=== PATIENT | male | born 1965 | race Caucasian/White ===

== ENCOUNTER 2020-04-27 07:49 | Outpatient (CLI) | payer OTHER ==
[2020-04-27 13:25] LABS: Hemoglobin 14.2 g/dL (14.0-18.0); Mean Corpuscular HGB CONC 32.8 G/DL (32.0-36.0); Mean Corpuscular Hemoglobin 30.7 PG (27.0-33.0); Mean Corpuscular Volume 93.7 fl (80.0-100.0); RBC Distribution Width 14.6 % (11.5-14.5); Red Blood Cell (RBC) Count 4.62 10x6/uL (4.40-5.80); White Blood Cell (WBC) Count 5.3 10x3/uL (4.5-11.0)
[2020-04-27 13:38] LABS: Anion Gap 10 mmol/L (10-20); BUN (Urea Nitrogen) 12 mg/dL (8.4-25.7); Calc. Creatinine Clearance 0 mL/min (70-130); Calcium 8.7 mg/dL (7.8-10.44); Carbon Dioxide 27 mmol/L (22-29); Chloride 106 mmol/L (98-107); Glucose 125 mg/dL (70-105); Potassium 4.4 mmol/L (3.5-5.1); Sodium 139 mmol/L (136-145)
[2020-04-27 13:48] LABS: #Basophils 0.1 10x3/uL (0.0-0.2); #Eosinphils 0.3 10x3/uL (0.0-0.5); #Monocytes 0.6 10x3/uL (0.0-1.1); #Neutrophils 2.7 10x3/uL (1.5-8.4); %Basophils 0.9 % (0.0-2.0); %Eosinophils 4.7 % (0.0-6.0); %Lymphocytes 31.3 % (18.0-47.0); %Monocytes 11.9 % (0.0-10.0); %Neutrophils 50.8 % (40.0-75.0); Mean Platelet Volume 11.8 fl (7.4-10.4); Platelet Count 85 10x3/uL (130-400)
[2020-04-27 14:55] LABS: Platelet Morphology Comment Appears Decreased; RBC Morphology Normal
[2020-04-28 00:15] LABS: SARS-CoV-2 PCR by NAA Not Detected (NotDetected)
== END 2020-04-27 07:50 | disposition home or self-care (01) ==
LOC: LABBT 07:49
PROVIDERS: ATTEND Specialist
DX: Z01.812 Encounter for preprocedural laboratory examination (principal); K61.1 Rectal abscess; K62.89 Other specified diseases of anus and rectum; Z20.822 Contact with and (suspected) exposure to COVID-19
CPT/HCPCS: 80048; 85025; 87635; U0003; U0005

== ENCOUNTER 2020-05-02 05:56 | Day surgery (SDC) | payer OTHER ==
[2020-05-01 11:46] VITALS: BMI 28.6
[2020-05-02] MEDS ORDERED: Ketorolac Tromethamine 30 MG/ML VIAL ONE (06:16)
[2020-05-02] MEDS ORDERED: Levofloxacin 500 mg/D5W 100 ml Premix Bag ONE (06:16)
[2020-05-02] MEDS ORDERED: Acetaminophen 500 MG TAB ONE (06:16)
[2020-05-02] MEDS ORDERED: Midazolam HCl 2 mg/2 ml Vial ONE (06:39)
[2020-05-02] MEDS ORDERED: Fentanyl 100 MCG/2 ML VIAL ONE ×3 (06:39→09:10)
[2020-05-02] MEDS ORDERED: Lidocaine 2% Jelly 5 ML TUBE ONE (07:03)
[2020-05-02] MEDS ORDERED: EPINEPHrine 1 MG/ML AMP ONE (07:03)
[2020-05-02] MEDS ORDERED: Bupivacaine 0.25% HCL 30 ML VIAL ONE (07:03)
[2020-05-02] MEDS ORDERED: Ondansetron PF 4 MG/2 ML Vial ONE ×2 (07:10→09:41)
[2020-05-02] MEDS ORDERED: Famotidine/PF 20 mg/2ml Vial ONE (07:10)
[2020-05-02] MEDS ORDERED: Scopolamine 1.5 mg/72 hour Patch ONE (07:10)
[2020-05-02] MEDS ORDERED: Promethazine HCl 25 MG/ML VIAL ONE (09:10)
[2020-05-02] MEDS ORDERED: Dexamethasone 20 MG/5 ML VIAL ONE (09:41)
[2020-05-02] MEDS ORDERED: PROPOFOL 200 MG/20 ML VIAL ONE (09:41)
[2020-05-02] MEDS ORDERED: Rocuronium Bromide 10 MG/ML (10ML VIAL) ONE (09:41)
[2020-05-02] MEDS ORDERED: Lidocaine 1% PF 5 ML VIAL ONE (09:41)
[2020-05-02] MEDS ORDERED: Succinylcholine 200 MG/10 ml SYRINGE FS ONE (09:41)
[2020-05-02] MEDS ORDERED: Esmolol 100 MG/10 ML VIAL ONE (09:41)
[2020-05-02] MEDS ORDERED: Meperidine HCl/PF 25 MG/ML VIAL ONE (09:42)
[2020-05-02] MEDS ORDERED: HYDROcodone/Acetaminophen 5/325 mg Tablet ONE ×2 (11:39→11:42)
--- NOTE | 2020-05-02 13:29 | OP ---
DATE OF PROCEDURE: 05/02/2020 PREOPERATIVE DIAGNOSIS: Perianal/perirectal infection, diffuse. 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 PETAL SHAPER HAND: Jordyn Peck, medical student. ANESTHESIA: General with laryngeal mask airway. INDICATIONS: The patient is a 54-year-old white male. 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 He is taken to the operating room at this time for surgical exploration and drainage. DESCRIPTION OF OPERATION: Informed consent was obtained. The patient was taken to the operating room, where general anesthesia was obtained with the patient in supine position. He was then placed into dorsal lithotomy. Perianal area was trimmed of hair, prepped with Betadine, draped in sterile fashion. Local anesthetic was infiltrated in a 4-quadrant intersphincteric fashion around the anus. I then injected further around the inflamed areas on the right lateral, left lateral, and anterior areas. Attention was turned first to the draining sinus on his right anterolateral area. There was a purulent material that was expressed with pressure. I cannulated this with an Angiocath and injected with peroxide. This was done while examining within the anal canal. I did not see any evidence of peroxide leaking within the anorectum. There was a counter opening toward the anterior aspect. I recognized that there was a large undermined area between these 2 areas. I incised the skin between these 2 areas. There was a large subcutaneous area in line with fleshy granulation tissue. I widely opened this entire area and debrided the granulation tissue with a curette. I examined to see if I could find any deeper tract or connection, but I could not. I then turned my attention to the area anteriorly. In this location, an incision and drainage had been performed previously, which had appeared to be healing. It was quickly recognized that there was undermined area in this area as well with minimal gauze debridement. This area was opened and the same abnormal fleshy tissue was again visualized. There was a tract extending from this to the left anterolateral inflamed area. There was obviously a further area of undermining in this location. Rather than creating a particularly large defect, I created a counterincision and unroofed the area anterolateral. I inspected the wounds and could find no tracts leading deeply to suggest an anal fistula. There was no foul smell. I debrided all areas with aggressive gauze debridement using peroxide as well as with a curette. I placed a double loop of blue vessel loop between the anterior and the left open areas and secured this to itself with a silk suture. The fibrotic tissue was debrided out of each of these 3 areas to encourage appropriate healing. Dry gauze dressing and mesh pants were placed externally. There were no complications. The patient tolerated the procedure well and was taken to recovery room in stable condition. Job ID: [id number]
== END 2020-05-02 12:10 | disposition home or self-care (01) ==
LOC: SDC 05:56
PROVIDERS: ATTEND Specialist
PROC: 0D9Q7ZZ Drainage of Anus, Via Natural or Artificial Opening (ICD-10-PCS; principal; 2020-05-02)
DX: K61.1 Rectal abscess (principal); F32.9 Major depressive disorder, single episode, unspecified; K21.9 Gastro-esophageal reflux disease without esophagitis; F17.200 Nicotine dependence, unspecified, uncomplicated; Z79.899 Other long term (current) drug therapy; Z88.0 Allergy status to penicillin; Z88.5 Allergy status to narcotic agent; Z91.040 Latex allergy status
CPT/HCPCS: J0171; J1100; J1885; J1956; J2175; J2250; J2405; J2550; J2704; J3010; S0020; S0028